=== PATIENT | female | born 2000 | race Caucasian/White ===

== ENCOUNTER 2024-07-28 14:41 | Outpatient (CLI) | payer OTHER, SELFPAY ==
--- OUTSIDE RECORDS SUMMARY | 2024-07-28 16:58 | XMS_ITS | Clinical Summary ---
Author Organization [facility] [place] [address] [facility] [place] [address] Care Team Providers Care Outdoor Illuminating Engineer Name Role Phone No, Physician Primary Care Provider [phone] Allergies No known active allergies Medications adapalene (DIFFERIN) 0.1 % cream Apply topically nightly 9 Active cyanocobalamin (Vitamin B-12) 500 mcg tablet Take 1 tablet (500 mcg total) by mouth 1 Active desogestreL-eth inyl estradioL (Cyred EQ) 0.15-0.03 mg per tablet Take 1 tablet by mouth daily 8 Active desogestreL-eth inyl estradioL (Isibloom) 0.15-0.03 mg per tablet 0 Active ferrous sulfate 325 mg (65 mg of elemental iron) tablet Take 1 tablet (325 mg total) by mouth 1 Active Active Problems Problem Noted Date Diagnosed Date Acne 10/31/2011 Vomiting 10/12/2008 Overview (08/03/2017): Description: occurs at nigth 85% of the time Periumbilical abdominal pain 10/12/2008 Overview (08/03/2017): Description: occurs at night 85% of the time Social History Tobacco Use Types Packs/Day Years Used Date Smoking Tobacco: Never Assessed Comments Unknown Sex and Gender Information Value Date Recorded Sex Assigned at Not on file 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 Gender Identity Not on file Sexual Orientation Not on file Obstetrics History Last Filed Vital Signs Vital Sign Reading Time Taken Comments Blood Pressure 114/70 10/16/2022 7:41 PM CDT Pulse 69 10/16/2022 7:41 PM CDT Temperature 36.9 C (98.4 F) 10/16/2022 7:41 PM CDT Respiratory Rate 18 10/16/2022 7:41 PM CDT Oxygen Saturation 98% 10/16/2022 7:41 PM CDT Inhaled Oxygen Concentration - - Weight 104.3 kg (230 lb) 10/16/2022 7:41 PM CDT Height 175.3 cm (5' 9 ) 10/16/2022 7:41 PM CDT Body Mass Index 33.97 10/16/2022 7:41 PM CDT Plan of Treatment Health Maintenance Due Date Last Done Comments Cervical Cancer Screening 2000 Depression Screening 2000 Hepatitis C Screening 2000 Regular Well Visit/Exam 18-64 01/05/2018 Covid-19 Vaccine ( season) 2023 05/20/2020, 04/29/2020 Influenza Vaccine (#1) 2023 , 03/03/2013, 01/04/2012, Additional history exists DTaP/Tdap/Td Vaccine (7 - Td or Tdap) 12/02/2030 12/02/2020, 01/24/2010, 06/14/2004, Additional history exists HPV Vaccines Completed 03/03/2013, 12/22, 10/31/2011 Varicella Vaccines Completed 01/10/2021, 12/07/2020 Hepatitis B Screening Completed 06/13/2021 , 01/10/2021, 12/02/2020, Additional history exists Pneumococcal vaccine <65 Aged Out No longer eligible based on patient's age to complete this topic Insurance AETNA COVENTRY HMO/POS AETNA [facility] H[facility] Care Teams Outdoor Illuminating Engineer Relationship Specialty Start Date End Date No, Physician PCP - General 10/16/22
--- OUTSIDE RECORDS SUMMARY | 2024-07-28 16:58 | XMS_ITS | Clinical Summary ---
Author Organization [facility] Address [address] [place] [address] Care Team Providers Care Web Marketing Coordinator Name Role Phone Ana Dumont MD Unavailable [phone] Abel Estrella MD Unavailable Unavailable Source Comments [facility],non-owned Affiliates and Associated Physician Practices is amultiple site organization consisting of ambulatory clinics and hospital sitesin [place], [place], [place] and [place]. This disclosure is being madepursuant to the Care Everywhere program and may not contain all information available regarding this patient. Last updated 18.[facility] Allergies No known active allergies Medications * Be aware that medications may not be up to date on this document. Alwaysverify current medications with the patient. Medication Sig Dispensed Refills Start Date End Date Status CYRED EQ 0.15-30 MG-MCG tablet Take 1 tablet by mouth once daily 04/22/2018 Active adapalene (DIFFERIN) 0.1 % cream Apply to affected area at bedtime 45 g 2 12/10/2018 Active Active Problems Problem Noted Date Diagnosed Date Acne 10/31/2011 Immunizations Name Administration Dates Next Due DTaP VACCINE IM (6wk-6yrs) 06/14/2004,,12/15/2002,05/08,2000 HEP A PEDS 2 DOSE 08/30/2010,11/22/2009 HEP B VACCINE, PED/ADOL 01/26/2003,2000, HIB BOOSTER 01/26/2003,2000,2000 Human Papilloma Virus Yazmin valent Vaccine 03/03/2013,01/04/2012,10/31/2011 INFLUENZA VACCINE 02/05/2007, 6,03/30/2005,02/27 INFLUENZA VACCINE, QUADR. (F LUZONE; FLULAVAL; FLUARIX; AFLURIA QUADRIVALENT; 6MO+), 0.5 ML (IIV4) 03/03/2013 Influenza Nasal 01/04/2012,01/24/2010 MENINGOCOCCAL ACWY (MCV4P) VAC IM 12/07/2017,01/2012 MMR 06/14/2004,12/15/2002 POLIO IPV 06/14/2004, 3,2000,03/08 PPD 06/14/2004 TDAP (7yrs+) 01/24/2010 Family History Medical History Relation Name Comments High Cholesterol Father Relation Name Status Comments Father Social History Tobacco Use Types Packs/Day Years Used Date Smoking Tobacco: Never Smokeless Tobacco: Never Alcohol Use Standard Drinks/Week Comments Not Asked 0 (1 standard drink = 0.6 oz pur e alcohol) Sex and Gender Information Value Date Recorded Sex Assigned at Not on file Gender Identity Not on file Sexual Orientation Not on file Last Filed Vital Signs Vital Sign Reading Time Taken Comments Blood Pressure 115/73 12/10/2018 9:44 AM CDT Pulse 58 12/10/2018 9:44 AM CDT Temperature 37.3 C (99.1 F) 07/01/2018 1:12 PM CDT Respiratory Rate 16 11/07/2016 4:45 PM CDT Oxygen Saturation 99% 11/07/2016 4:45 PM CDT Inhaled Oxygen Concentration - - Weight 83.1 kg (183 lb 3.2 oz) 12/10/2018 9:44 A M CDT Height 172.7 cm (5' 8 ) 12/10/2018 9:44 AM CDT Body Mass Index 27.86 12/10/2018 9:44 AM CDT Plan of Treatment Health Maintenance Due Date Last Done Comments PAP SMEAR 2000 HIV SCREENING 01/05/2015 CHLAMYDIA/GONORRHEA SCREENING 2016 HEPATITIS C SCREENING 01/01/2018 DTAP/TDAP/TD VACCINES (6 - Td or Tdap) 01/25/2020 01/24/2010, 06/14/2004, 01/26/2003, Additional history exists COVID-19 VACCINE ( season) 2023 DEPRESSION SCREENING 04/23/2024 INFLUENZA VACCINE (Season Ended) 2024 03/03/2013, 01/04/2012, 01/24/2010, Additional history exists ZOSTER VACCINE (1 of 2) 01/05/2050 HEPATITIS B VACCINE Completed 01/26/2003, 2000, 2000 HIB VACCINE Completed 01/26/2003, 04/23, 2000 HPV VACCINE Completed 03/03/2013, 12/22, 10/31/2011 MENINGOCOCCAL GROUPS A/C/Y/W VACCINE Completed 12/07/2017, 10/31/2011 MENINGOCOCCAL (Group B) VACCINE SHARED DECISION-MAKING Aged Out No longer eligible based on patient's age to complete this topic PNEUMOCOCCAL VACCINE Aged Out No long er eligible based on patient's age to complete this topic Goals Goal Patient Goal Type Associated Problems Recent Progress Patient-Stated? Author Use safety retraint in car Lifestyle On track( 019 9:40 AM CDT) Mery Fletcher, CICI Care Teams Web Marketing Coordinator Relationship Specialty Start Date End Date Ana Dumont MD PCP - Pediatrics 03/02/09 Abel Estrella MD Dermatology 12/10/18
--- OUTSIDE RECORDS SUMMARY | 2024-07-28 16:58 | XMS_ITS | Referral Summary ---
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
--- OUTSIDE RECORDS SUMMARY | 2024-07-28 16:58 | XMS_ITS | Clinical Summary ---
Author Organization [facility] Address [address] [place] [address] Care Team Providers Care Federal Mediator Name Role Phone None, Provider Primary Care Provider Bryna ble Social History Tobacco Use Types Packs/Day Years Used Date Smoking Tobacco: Never Assessed Comments Unknown Sex and Gender Information Value Date Recorded Sex Assigned at Not on file Legal Sex Female 4:04 PM CDT Gender Identity Not on file Sexual Orientation Not on file Plan of Treatment Health Maintenance Due Date Last Done Comments Cervical Cancer Screening Pap Smear (Age 21 to 29) Every 3 Years 2000 Cervical Cancer Screening 2000 Annual Physical 01/05/2003 COVID-19 Vaccine ( season) 2023 05/20/2020, 04/29/2020 DTaP, Tdap and Td Vaccines (7 - Td or Tdap) 12/02/2030 12/02/2020, 01/24/2010, 06/14/2004, Additional history exists Hepatitis B Vaccines Completed 01/26/2003, 2000, 2000 HPV Vaccines Completed 03/03/2013, 12/22, 10/31/2011 Meningococcal Vaccine Completed 12/07/2017, 012 Hepatitis C Completed 08/07/2022 Meningococcal B Vaccine Aged Out No l onger eligible based on patient's age to complete this topic Pneumococcal Vaccine: Pediatrics (0 to 5 Years) and At-Risk Patients (6 to 64 Years) Aged Out No longer eligible based on patient's age to complete this topic RSV Immunizations Under 20 Months Aged Out No longer eligible based on patient's age to complete this topic Procedures Procedure Name Priority Date/Time Associated Diagnosis Comments HEPATITIS C ANTIBODY Routine 08/07/2022 4:15 PM CDT Vaginal bleeding, abnormal Screen for sexually transmitted diseases from Last 3 Months or Most Recently Relevant to Health Maintenance Results * HEPATITIS C ANTIBODY (08/07/2022 4:15 PM CDT) HEPATITIS C AB NON-REACTI VE NON-REACT OLE 08/07/2022 6:56 PM CDT [facility] Comment: ANTIBODIES TO HCV NOT DETECTED. DOES NOT EXCLUDE THE POSSIBILITY OF EXPOSURE TO HCV. 08/07/2022 4:15 PM CDT Padmaja Jang MD LABORATORY Final Result [facility] [address] [place] [address], [id number] from Last 3 Months or Most Recently Relevant to Health [place] [address] AETNA Care Teams Federal Mediator Relationship Specialty Start Date End Date None, Provider, MD PCP - General UNKNOWN PHYSICIAN SPECIALTY 08/07/22
[2024-07-29 07:59] LABS: Progesterone 9.3 ng/mL
== END 2024-07-28 14:42 | disposition home or self-care (01) ==
LOC: ANHLAB 14:49
PROVIDERS: Visit Provider Obstetrics & Gynecology
DX: Z32.00 Encounter for pregnancy test, result unknown (principal)
CPT/HCPCS: 36415; 84144; 84702

== ENCOUNTER 2024-07-30 14:48 | Outpatient (CLI) | payer OTHER, SELFPAY ==
--- OUTSIDE RECORDS SUMMARY | 2024-07-30 16:24 | XMS_ITS | Referral Summary ---
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
--- OUTSIDE RECORDS SUMMARY | 2024-07-30 16:24 | XMS_ITS | Clinical Summary ---
Author Organization [facility] Address [address] [place] [address] Care Team Providers Care Back Panel Padder Name Role Phone Ana Dumont MD Unavailable [phone] Abel Estrella MD Unavailable Unavailable Source Comments [facility],non-owned Affiliates and Associated Physician Practices is amultiple site organization consisting of ambulatory clinics and hospital sitesin [place], [place], [place] and [place]. This disclosure is being madepursuant to the Care Everywhere program and may not contain all information available regarding this patient. Last updated 18.[facility] Allergies No known active allergies Medications * [...] AM CDT) Mery Fletcher, CICI Care Teams Back Panel Padder Relationship Specialty Start Date End Date Ana Dumont MD PCP - Pediatrics 03/02/09 Abel Estrella MD Dermatology 12/10/18
--- OUTSIDE RECORDS SUMMARY | 2024-07-30 16:24 | XMS_ITS | Clinical Summary ---
Author Organization [facility] Address [address] [place] [address] Care Team Providers Care Store Cashier Name Role Phone None, Provider Primary Care [...] VE NON-REACT OLE 08/07/2022 6:56 PM CDT [facility] Comment: ANTIBODIES TO HCV NOT DETECTED. DOES NOT EXCLUDE THE POSSIBILITY OF EXPOSURE TO HCV. 08/07/2022 4:15 PM CDT Padmaja Jang MD LABORATORY Final Result [facility] [address] [place] [address], [id number] from Last 3 Months or Most Recently Relevant to [place] [address] AETNA Care Teams Store Cashier Relationship Specialty Start Date End Date None, Provider, MD PCP - General UNKNOWN PHYSICIAN SPECIALTY 08/07/22
--- OUTSIDE RECORDS SUMMARY | 2024-07-30 16:24 | XMS_ITS | Clinical Summary ---
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
== END 2024-07-30 14:49 | disposition home or self-care (01) ==
LOC: ANHLAB 14:50
PROVIDERS: Visit Provider Obstetrics & Gynecology
DX: Z34.01 Encounter for supervision of normal first pregnancy, first trimester (principal)
CPT/HCPCS: 36415; 84702

== ENCOUNTER 2024-08-04 09:17 | Emergency (ER) | payer OTHER, SELFPAY ==
--- NOTE | ~2024-08-04 | US_ITS ---
Pelvic ultrasound. Clinical History: First trimester , vaginal bleeding Technique: Realtime transabdominal and transvaginal scanning of the pelvis was performed. Color flow Doppler and Doppler spectral analysis were performed. Findings: The uterus is anteverted. The endometrial stripe has a thickness of 14 mm. Early intrauter ine gestational sac measuring 6 mm, which correlate to an estimated gestational age of 5 weeks 2 days . Questionable very early pole with estimated gestational age of 5 weeks 6 days by crown-rump l ength of 3 mm.. The right ovary measures 2.6 x 1.3 x 1.5 cm. No significant right ovarian or adnexal mass is seen. The left ovary measures 3.1 x 1.8 x 2.2 cm. No significant left ovarian or adnexal mass is seen. There is no evidence of free fluid in the cul de sac. Impression: Early intrauterine gestational sac with estimated gestational age of 5 weeks 6 days by crown-rump juno gth. No cardiac activity seen, which could be commensurate with the early gestational age. Consider s hort-term follow-up ultrasound dated 5-7 days to assess for development of cardiac activity, as indic ated. Reviewed, dictated and finalized at location . Impression: Early intrauterine gestational sac with estimated gestational age of 5 weeks 6 days by crown-rump length. No cardiac activity seen, which could be commensurat e with the early gestational age. Consider short-term follow-up ultrasound date d 5-7 days to assess for development of cardiac activity, as indicated.
[2024-08-04 09:21] VITALS: BP 137/75; PULSE 92; RESP 18; TEMP 37.1; O2SAT 100
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
--- OUTSIDE RECORDS SUMMARY | 2024-08-04 10:03 | XMS_ITS | Clinical Summary ---
Author Organization [facility] Address [address] [place] [address] Care Team Providers Care Embedded Case Manager Name Role Phone None, Provider Primary Care [...] 5 Years) and At-Risk Patients (6 to 49 Years) Aged Out No longer eligible based [...] VE NON-REACT OLE 08/07/2022 6:56 PM CDT [facility] Comment: ANTIBODIES TO HCV NOT DETECTED. DOES NOT EXCLUDE THE POSSIBILITY OF EXPOSURE TO HCV. 08/07/2022 4:15 PM CDT Padmaja Jang MD LABORATORY Final Result [facility] [address] [place] [address], [id number] from Last 3 Months or Most Recently Relevant to [place] [address] AETNA Care Teams Embedded Case Manager Relationship Specialty Start Date End Date None, Provider, MD PCP - General UNKNOWN PHYSICIAN SPECIALTY 08/07/22
--- OUTSIDE RECORDS SUMMARY | 2024-08-04 10:03 | XMS_ITS | Clinical Summary ---
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 Gender Identity Not on file Sexual Orientation [...] ( season) 2023 05/20/2020, 04/29/2020 Influenza Vaccine (Season Ended) 2024 02/09/2022, 03/03/2013, 01/04/2012, Additional history exists DTaP/Tdap/Td Vaccine (7 - Td or Tdap) 12/02/2030 12/02/2020, 01/24/2010, 06/14/2004, Additional history exists HPV Vaccines Completed 03/03/2013, 12/22, 10/31/2011 Varicella Vaccines Completed 01/10/2021, 12/07/2020 Hepatitis B Screening Completed 06/13/2021 , 01/10/2021, 12/02/2020, Additional history exists Pneumococcal vaccine <65 Aged Out No longer eligible based on patient's age to complete this topic Insurance AETNA COVENTRY HMO/POS AETNA [facility] H[facility]/POS Care Teams Outside Parts Sales Relationship Specialty Start Date End Date No, Physician PCP - General 10/16/22
--- OUTSIDE RECORDS SUMMARY | 2024-08-04 10:03 | XMS_ITS | Referral Summary ---
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
--- OUTSIDE RECORDS SUMMARY | 2024-08-04 10:03 | XMS_ITS | Clinical Summary ---
Author Organization [facility] Address [address] [place] [address] Care Team Providers Care Control Manager Name Role Phone Ana Dumont MD Unavailable [phone] Abel Estrella MD Unavailable Unavailable Source Comments [facility],non-owned Affiliates and Associated Physician Practices is amultiple site organization consisting of ambulatory clinics and hospital sitesin [place], [place], [place] and [place]. This disclosure is being madepursuant to the Care Everywhere program and may not contain all information available regarding this patient. Last updated 18.[facility] Allergies No known active allergies Medications * Be aware that medications may not be up to date on this document. Alwaysverify current medications with the patient. 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
--- OUTSIDE RECORDS SUMMARY | 2024-08-04 10:31 | XMS_ITS | Clinical Summary ---
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
--- OUTSIDE RECORDS SUMMARY | 2024-08-04 10:31 | XMS_ITS | Clinical Summary ---
Author Organization [facility] [employer] Address [address] [place] [address] Care Team Providers Care Offal Worker Name Role Phone Ana Dumont MD Unavailable [phone] Abel Estrella MD Unavailable Unavailable Source Comments [facility],non-owned Affiliates and Associated Physician Practices is amultiple site organization consisting of ambulatory clinics and hospital sitesin [place], [place], [place] and [place]. This disclosure is being madepursuant to the Care Everywhere program and may not contain all information available regarding this patient. 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
--- OUTSIDE RECORDS SUMMARY | 2024-08-04 10:31 | XMS_ITS | Referral Summary ---
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
--- OUTSIDE RECORDS SUMMARY | 2024-08-04 10:31 | XMS_ITS | Clinical Summary ---
Author Organization [facility] Address [address] [place] [address] Care Team Providers Care Parts And Service Manager Name Role Phone None, Provider Primary [...] VE NON-REACT OLE 08/07/2022 6:56 PM CDT [facility] Comment: ANTIBODIES TO HCV NOT DETECTED. DOES NOT EXCLUDE THE POSSIBILITY OF EXPOSURE TO HCV. 08/07/2022 4:15 PM CDT Padmaja Jang MD LABORATORY Final Result [facility] [address] [place] [address], [id number] from Last 3 Months or Most Recently Relevant to Health [place] [address] AETNA Care Teams Parts And Service Manager Relationship Specialty Start Date End Date None, Provider, MD PCP - General UNKNOWN PHYSICIAN SPECIALTY 08/07/22
== END 2024-08-04 12:08 | disposition home or self-care (01) ==
PROVIDERS: Emergency Provider Physician Assistant
DX: O9A.211 Injury, poisoning and certain other consequences of external causes complicating pregnancy, first trimester (principal); S39.012A Strain of muscle, fascia and tendon of lower back, initial encounter; Z3A.01 Less than 8 weeks gestation of pregnancy; V49.40XA Driver injured in collision with unspecified motor vehicles in traffic accident, initial encounter
CPT/HCPCS: 36415; 76801; 76817; 84702; 99284

== ENCOUNTER 2024-08-22 00:57 | Day surgery (SDC) | payer OTHER, SELFPAY ==
[2024-08-19 10:57] VITALS: BMI 31.8
--- NOTE | 2024-08-19 10:58 | PC.NURSE ---
Report to the Outpatient Waiting Room, entrance under the green pavilion located off [facility], at time _1000_ on date _[id number]_. Planned Procedure Time: _1200_.? Time changes happen often and if your time is changed the preop area will call you the afternoon before. - You and your visitor will be asked to self-screen and do not enter if you have any COVID symptoms. Please call surgeon if you need to reschedule. - A mask is optional within the hospital at this time. Patients may have clear liquids (water, carbonated beverages, clear teas, apple juice) until 3 hours prior to surgery with a maximum of 20 ounces. - No food from midnight until time of surgery and no smoking, or chewing tobacco (or any form of nicotine). No chewing gum, candy or mints. Take only the following medications with a SIP of water on the morning of surgery: __None___ DO NOT STOP ANY OF YOUR OTHER PRESCRIPTION MEDICATIONS PRIOR TO SURGERY EXCEPT THE FOLLOWING Hold all vitamins and supplements for 3 days per anesthesiologist. Medications to discontinue per physician Date to take last dose Please no make-up, nail dominican, hairspray, perfume, deodorant, or body powder the day of surgery.? No jewelry (including any body piercings) or valuables the day of surgery, leave them at home.? Please take a shower or bath the night before, or the morning of, surgery with an antibacterial soap.? Wear comfortable, loose fitting clothing. - Jewelry must be removed prior to entering the operating room.? Rings and piercings that are not removed may be cut off. - The hospital will not accept responsibility for valuables.? - Please leave all valuables, including medications, at home the day of surgery. If you are going home after surgery, a licensed wagon driver salesperson must drive you home.? - NO public transportation without another adult if you receive anesthesia. - We recommend that an adult stay with you for 24 hours following discharge. - We also recommend that you do not drive, make important decision, drink alcoholic beverages, or take any drugs that were not prescribed by your health care provider for at least 24 hours after your discharge time. Follow any additional instructions given to you from your surgeon. Telephone instructions given to __Mira__and asked if any additional questions and then verbalized understanding. Patient advised to call surgeon office or pre surgery nurse liaison [phone] if any additional questions.
--- NOTE | 2024-08-19 11:47 | PM.IMHP ---
H&P: HPI History of Present Illness Date/Time: 08/19/24 11:47 Chief Complaint: 1st trimester missed A/B Narrative: Rate pleasant 24-year-old 1 para 0 who is admitted for suction D and C secondary to missed A/B. Serial ultrasounds have shown abnormal growth with diagnosis missed . Risks and benefits reviewed great details Review of Systems Review of Systems: All systems reviewed & are unremarkable except as noted in HPI. All systems reviewed & are unremarkable except as noted in HPI and below PMFSH Social History Social History Smoking status: Never smoker Alcohol intake: current Living arrangements: with family Spiritual care concerns: No Meds Home Medications and Allergies Home Medications ?Medication ?Instructions ?Recorded ?Confirmed ?Type No Home Medications 08/04/24 08/19/24 History Allergies Allergy/AdvReac Type Severity Reaction Status Date / Time No Known Allergies Allergy Mild Verified 08/19/24 10:50 Exam Const: General: cooperative, healthy appearing, comfortable and well groomed Nutritional Appearance: average body habitus Orientation/consciousness: oriented to person, oriented to place and oriented to time HENMT: Head: normal to inspection Resp: Effort & Inspection: normal respiratory effort Cardio: Rate: regular rate Rhythm: regular rhythm Heart sounds: S1 normal heart sound present and S2 normal heart sound present GI: Inspection: normal to inspection Auscultation: normal bowel sounds : External Female Exam: normal external appearance Speculum Exam - Vagina: normal appearance of the vagina Speculum Exam - Cervix: normal appearance of the cervix Bimanual exam- vagina & uterus: non-tender and enlarged Bimanual Exam- Adnexa, other: normal adnexae Assessment and Plan Assessment and plan (1) Missed : Code(s): O02.1 - Missed Status: Acute Plan Will proceed with suction dilatation curettage
--- OUTSIDE RECORDS SUMMARY | 2024-08-22 01:00 | XMS_ITS | Clinical Summary ---
Author Organization [facility] [employer] Address [address] [place] [address] Care Team Providers Care Department Director Name Role Phone Ana Dumont MD Unavailable [phone] Abel Estrella MD Unavailable Unavailable Source Comments [facility] [employer],non-owned Affiliates and Associated Physician Practices is amultiple site organization consisting of ambulatory clinics and hospital sitesin [place], [place], [place] and [place]. This disclosure is being madepursuant to the Care Everywhere program and may not contain all information available regarding this patient. 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
--- OUTSIDE RECORDS SUMMARY | 2024-08-22 01:00 | XMS_ITS | Clinical Summary ---
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
--- OUTSIDE RECORDS SUMMARY | 2024-08-22 01:00 | XMS_ITS | Clinical Summary ---
Author Organization [facility] Address [address] [place] [address] Care Team Providers Care Engineer Technical Staff Name Role Phone None, Provider Primary Care [...] VE NON-REACT OLE 08/07/2022 6:56 PM CDT [facility] Comment: ANTIBODIES TO HCV NOT DETECTED. DOES NOT EXCLUDE THE POSSIBILITY OF EXPOSURE TO HCV. 08/07/2022 4:15 PM CDT Padmaja Jang MD LABORATORY Final Result [facility] [address] [place] [address], [phone] from Last 3 Months or Most Recently Relevant to Health Maintenance [place] [address] AETNA Care Teams Engineer Technical Staff Relationship Specialty Start Date End Date None, Provider, MD PCP - General UNKNOWN PHYSICIAN SPECIALTY 08/07/22
--- OUTSIDE RECORDS SUMMARY | 2024-08-22 01:00 | XMS_ITS | Referral Summary ---
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
--- NOTE | 2024-08-22 06:30 | WPDHPUPDATE1 ---
History and Physical Update Update Date/Time: 08/22/24 06:30 History and Physical has been reviewed, including an updated exam of the patient. There are NO changes in the patient's condition. Risks, benefits, and alternatives have been discussed and questions answered. Patient agrees to proceed with procedure.
[2024-08-22 09:50] VITALS: BMI 31.2
[2024-08-22] MEDS: LACTATED RINGERS 1,000 ML 30 ML IV CONT (10:30)
[2024-08-22 10:35] VITALS: BP 116/71; PULSE 71; RESP 18; TEMP 36.9; O2SAT 100
[2024-08-22 10:47] LABS: Hematocrit 36.6 % (37.0-47.0); Hemoglobin 11.8 g/dL (12.0-15.0)
--- NOTE | 2024-08-22 10:49 | WPDANESEPPF ---
Anes - Initial Pre Proc Eval Procedure: Operation Date: 08/22/24 12:00 Proposed Procedures p Suction Dilation and Curettage - Duong Lam MD Date/Time: 08/22/24 10:49 Surgeon: Duong Lam MD Pre Op Diagnosis: missed ab Patient Data Age: 24 Gender: F Height: 1.75 m Weight: 97.7 kg Allergies Allergy/AdvReac Type Severity Reaction Status Date / Time No Known Allergies Allergy Mild Verified 08/22/24 10:57 Home Medications ?Medication ?Instructions ?Recorded ?Confirmed ?Type hydrocodone 5 mg-acetaminophen 325 1 tablet PO Q4H PRN pain #14 tabs 08/22/24 Rx mg tablet Laboratory Tests 08/22/24 10:40 Hgb Pending Hct Pending Patient hx anesthesia problems: none Family hx anesthesia problems: none Results Review: All pre-operative results and documents have been reviewed as part of the pre-operative evaluation. [facility] Social History Social History Smoking status: Never smoker Alcohol intake: current Living arrangements: with family Spiritual care concerns: No Anes - Eval Final PreProcedure Day of Procedure 08/22/24 10:49 Patient weight: obese Heart: regular rate and rhythm Lungs: clear to auscultation Airway: Mallampati scale class II Neurological: alert and oriented Last oral intake: >/= 8 hours ASA classification: II Emergent: no Anesthetic plan: proceed Anesthesia type and monitoring: general GIVS and standard monitoring Results Review: All pre-operative results and documents have been reviewed as part of the pre-operative evaluation. Informed Consent: The patient's anesthetic plan and its attendant risks and benefits were discussed with the patient/family/POA. Questions were solicited and answers provided to the satisfaction of the patient/family/POA.
[2024-08-22] MEDS: ACETAMINOPHEN 500 MG TABLET 1000 MG PO (11:01)
[2024-08-22] MEDS: MIDAZOLAM HCL (*CRX) 2 MG/2 ML VIAL IV PUSH (11:13)
[2024-08-22] MEDS: LIDOCAINE 1% LOCAL INJ 10 ML VIAL INFILTRATE (11:58)
--- NOTE | 2024-08-22 12:08 | W.PM.PROC2 ---
Procedure Note - Detailed Date of Procedure 08/22/24 Pre-op Diagnosis missed ab Post-op Diagnosis Same Procedure Performed Suction dilatation curettage Surgeon Duong Lam MD Anesthesia MAC and Local Indications 24-year-old female with a missed A/B first-trimester Findings Uterus sounded to 10cm. Tissue consistent products of Description of Procedure The patient was prepped draped in the normal sterile fashion placed in the dorsal lithotomy position. Under excellent IV sedation weighted speculum placed in posterior fornix. Anterior lip of the cervix grasped with a single-tooth tenaculum. 2.5cc 1% xylocaine anesthesia placed at 2, 4 8, 10 the cervix. Uterus sounded to 10cm. Serial dilatation with fragmented dilators performed followed by passage of the 9. Suction curette. Moderate amount of tissue was removed. When a good grating sound was heard the instruments withdrawn. The patient was awakened went recovery in satisfactory condition. All sponge, needle, instrument counts were correct. There were no immediate complications Estimated Blood Loss 25 Drains No Packing No Pathology Yes Complications No immediate complications Condition Stable Disposition PACU
[2024-08-22 12:11] VITALS: BP 108/54; PULSE 62; O2SAT 98
[2024-08-22] MEDS: fentaNYL CITRATE INJ (*CRX) 100 MCG/2 ML VIAL 25 MCG IV PUSH ×4 (12:37→13:32)
[2024-08-22 12:40] VITALS: BP 113/72; PULSE 55; O2SAT 100
[2024-08-22 13:10] VITALS: BP 109/65; PULSE 50
[2024-08-22] MEDS: oxyCODONE HCL (*CRX) 5 MG TAB IR PO (13:18)
[2024-08-22 13:40] VITALS: BP 104/56; PULSE 60
--- NOTE | 2024-08-22 15:38 | SUR.PHASEII ---
Patient's blood type is A+. No Rhogam needed.
== END 2024-08-22 13:45 | disposition home or self-care (01) ==
PROVIDERS: Visit Provider Obstetrics & Gynecology
PROC: (CPT 59820; principal; 2024-08-22 12:00)
DX: O02.1 Missed abortion (principal)
CPT/HCPCS: 59820; 36415; 85014; 85018; 85461; 86850; 86900; 86901; 88305; A9270; J2003; J2210; J2250; J2405; J2704; J3010; J7120

== ENCOUNTER 2025-03-31 07:39 | Outpatient (CLI) | payer OTHER, SELFPAY ==
[2025-03-31 09:16] LABS: Thyroid Stimulating Hormone 2.440 uIU/mL (0.465-4.680)
== END 2025-03-31 07:40 | disposition home or self-care (01) ==
LOC: ANHLAB 07:42
PROVIDERS: PCP Obstetrics & Gynecology; Visit Provider Obstetrics & Gynecology
DX: N97.9 Female infertility, unspecified (principal)
CPT/HCPCS: 36415; 82166; 84144; 84146; 84443

== ENCOUNTER 2025-04-02 14:54 | Outpatient (CLI) | payer OTHER, SELFPAY ==
[2025-04-02 15:42] LABS: Hematocrit 41.6 % (37.0-47.0); Hemoglobin 14.0 g/dL (12.0-15.0); Mean Corpuscular HGB Conc 33.7 g/dl (32-36); Mean Corpuscular Hemoglobin 31.5 pg (26-34); Mean Corpuscular Volume 93.5 fl (80-100); Platelet Count Result 251 k/mm3 (150-375); Red Blood Count 4.45 M/mm3 (4.2-5.4); White Blood Count 5.6 K/mm3 (4.5-10.0)
[2025-04-02 15:54] LABS: Alanine Aminotransferase 16 U/L (6-35); Albumin Level 5.1 g/dL (3.5-5.1); Alkaline Phosphatase 57 U/L (38-126); Anion Gap 7 mmol/L (4-12); Aspartate Amino Transferase 22 U/L (14-36); Bilirubin,Total 0.8 mg/dL (0.2-1.3); Blood Urea Nitrogen 17 mg/dL (7-17); Calcium 9.7 mg/dL (8.4-10.2); Carbon Dioxide 23 mmol/L (22-30); Chloride 106 mmol/L (98-107); Cholesterol 205 mg/dL (0-200); Estimated Glomerular Filt Rate > 60; Glucose 78 mg/dL (65-110); HDL Direct 62 mg/dL; Potassium 4.1 mmol/L (3.4-5.0); Sodium 136 mmol/L (137-145); Total Protein 9.0 g/dL (6.3-8.2); Triglycerides 59 mg/dL (<150)
[2025-04-02 16:12] LABS: Hemoglobin A1C 4.6 % (<5.7)
== END 2025-04-02 14:55 | disposition home or self-care (01) ==
PROVIDERS: PCP Obstetrics & Gynecology; Visit Provider Obstetrics & Gynecology
DX: Z00.00 Encounter for general adult medical examination without abnormal findings (principal); Z20.1 Contact with and (suspected) exposure to tuberculosis
CPT/HCPCS: 36415; 80053; 80061; 83036; 85027; 86480